=== PATIENT | male | born 1960 | race Caucasian/White ===

== ENCOUNTER 2019-08-03 14:51 | Emergency (ER) | payer OTHER, SELFPAY ==
[2019-08-03 14:52] VITALS: BP 174/104; PULSE 69; RESP 16; TEMP 36.7; O2SAT 95; BMI 33.6
--- NOTE | 2019-08-03 14:57 | RAD_ITS ---
STUDY: X-RAY - LEFT HAND, ATTENTION SECOND FINGER REASON FOR EXAM: Male, 58 years old. nail shot through 2nd digit of left hand. glove still on unable to remove TECHNIQUE: 3 view(s) of the finger were obtained. COMPARISON: None. FINDINGS: Normal metacarpal head. Normal metacarpophalangeal joint. Normal proximal phalanx. Normal middle phalanx. Normal distal phalanx. 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 There is mild degenerative arthrosis of the distal interphalangeal joint. Radiopaque foreign body of the second digit is seen extending along the palmar soft tissues, tip terminating anterior to the proximal phalanx. RAD/Finger(s) Min 2 Views IMPRESSION: Radiopaque foreign body/nail the second digit (anterior soft tissues). Electronically Signed: Preet Fitzgerald MD ([facility]) at 15:12 EST , Service support ,
--- NOTE | 2019-08-03 16:08 | ED.VISSUMM ---
- ER Visit Summary Date of Service: 08/03/19 Chief Complaint: Nail in left index finger History of Present Illness: The patient is a 58 M who presents with a nail in his left index finger. He was using a nail gun and shot the nail right through his glove and index finger. This occurred just prior to arrival. His tetanus was updated about 5 years ago. Denies any other symptoms. Physical Examination: Vital signs reviewed. Left hand exam reveals a glove that is still on. There is a nail that traverses the index finger. I can see it from the other side of the glove. He has limited range of motion secondary to this. His sensation is intact distally. Test Results: X-ray reveals that the nail traverses the soft tissue on the palm side of the finger. No bony involvement. Emergency Department Course and Treatment: The patient's glove was removed using scissors. I then used lidocaine to anesthetize the skin around the area after thorough cleansing. The nail was then removed with gentle traction. The wound was irrigated with saline. Patient does have local swelling but there is no erythema. He has good range of motion after foreign body removal. Patient was placed on antibiotics and he will follow-up with his doctor Treatment Plan: [] Disposition: Discharge Impression: Foreign body, left index finger Foreign body removal This note was generated with [employer] dictation software. It may contain incorrect words, spelling, and punctuation that were not noted in review of the chart prior to signing ED Disposition - Plan for ED Patient: Referrals: Ramon Nation MD [Primary Care Provider] -
--- NOTE | 2019-08-03 16:10 | ED.DEP ---
ED Disposition - Plan for ED Patient: Disposition: Home or Assisted Living Instructions: FOREIGN BODY, Soft Tissue [Removed] Prescriptions: Cephalexin [Keflex] 500 mg PO Q8 #20 cap Prescription Printed Referrals: Ramon Nation MD [Primary Care Provider] -
[2019-08-03 16:20] VITALS: BP 115/94; RESP 16
[2019-08-03] MEDS: Cephalexin 250 MG Capsule 500 MG PO (16:20)
--- NOTE | 2019-08-03 16:28 | ED.RN ---
REVIEWED D/C INSTRUCTIONS, FOLLOW UP CARE, PRESCRIPTION, AND S/S THAT WOULD WARRANT A RETURN TO THE ED WITH PT. PT VERBALIZED AN UNDERSTANDING AND DENIES FURTHER QUESTIONS FOR THIS RN. PT SKIN P/W/D, RESP EVEN AND UNLABORED, PT A&O X 3, NO DISTRESS NOTED. PT AMBULATED OUT OF ED, GAIT STEADY.
== END 2019-08-03 16:30 | disposition home or self-care (01) ==
PROVIDERS: Emergency Provider Emergency Medicine; Family Provider Family Medicine; PCP Family Medicine
DX: S61.241A Puncture wound with foreign body of left index finger without damage to nail, initial encounter (principal); W29.4XXA Contact with nail gun, initial encounter; Y93.89 Activity, other specified; Y92.89 Other specified places as the place of occurrence of the external cause; Y99.8 Other external cause status
CPT/HCPCS: 73140; 99285